=== PATIENT | female | born 1960 | race Caucasian/White ===

== ENCOUNTER 2016-11-21 11:00 | Inpatient (IN) | payer MEDICAID, OTHER ==
[~2016-11-21] VITALS: Ht 157.5 cm; Wt 76.2 kg
[~2016-11-21 11:00] MED LIST: NO HOME MEDICATIONS
[2016-11-21 12:19] LABS: Basophils # (auto) 0 uL; Basophils % (auto) 0.3 % (0.0-2.0); Eosinophils # (auto) 0.1 uL; Eosinophils % (auto) 0.7 % (0.0-7.0); Hematocrit 44.1 % (36.0-46.0); Hemoglobin 14.8 g/dL (12.2-16.2); Lymphocytes # (auto) 1.8 uL; Lymphocytes % (auto) 20.2 % (10.0-50.0); Mean Corpuscular Hemoglobin 27.4 pg (28.0-32.0); Mean Corpuscular Hgb Conc. 33.6 g/dL (32.0-36.0); Mean Corpuscular Volume 81.7 fL (80.0-100.0); Monocytes # (auto) 1.1 uL; Monocytes % (auto) 12.2 % (0.0-12.0); Neutrophils # (auto) 5.8 uL; Neutrophils % (auto) 66.6 % (37.0-80.0); Platelet Count (auto) 345 10^3/uL (140-450); Red Cell Distribution Width 13.3 % (11.6-16.0); White Blood Cell 8.8 10^3/uL (4.4-10.8)
[2016-11-21 12:28] LABS: Albumin 4.1 g/dL (3.4-5.0); Bilirubin, Total 0.3 mg/dL (0.2-1.0); Potassium 3.1 mmol/L (3.5-5.1); Total Protein 8.5 g/dL (6.4-8.2)
[2016-11-21] MEDS ORDERED: SODIUM CHLORIDE 0.9% 1,000 ML IVB ONE (16:35)
[2016-11-21] MEDS ORDERED: ONDANSETRON HCL 4 MG/2 ML VIAL IV ONE (16:45)
[2016-11-21] MEDS ORDERED: MORPHINE SULF INJ 2 MG/ML SYRINGE 1ML IV ONE (16:45)
[2016-11-21 17:11] LABS: Basophils # (auto) 0 uL; Basophils % (auto) 0.2 % (0.0-2.0); Eosinophils # (auto) 0 uL; Eosinophils % (auto) 0.5 % (0.0-7.0); Hematocrit 43.4 % (36.0-46.0); Hemoglobin 14.3 g/dL (12.2-16.2); Lymphocytes # (auto) 1.5 uL; Lymphocytes % (auto) 17.2 % (10.0-50.0); Mean Corpuscular Hemoglobin 27.4 pg (28.0-32.0); Mean Platelet Volume 9.9 fL (7.4-10.4); Monocytes # (auto) 0.9 uL; Monocytes % (auto) 10.4 % (0.0-12.0); Neutrophils # (auto) 6.4 uL; Neutrophils % (auto) 71.7 % (37.0-80.0); Platelet Count (auto) 320 10^3/uL (140-450); Red Cell Distribution Width 13.4 % (11.6-16.0); White Blood Cell 8.9 10^3/uL (4.4-10.8)
[2016-11-21 17:22] LABS: INR 0.97 (0.9-1.15); Partial Thromboplastin Time 25.7 sec (22.64-33.71); Prothrombin Time 10.5 sec (9.37-12.3)
[2016-11-21 17:28] LABS: Albumin 3.8 g/dL (3.4-5.0); BUN/Creatinine Ratio 37.6; Bilirubin, Total 0.3 mg/dL (0.2-1.0); Calcium 7.9 mg/dL (8.5-10.1); Magnesium 2.8 mg/dL (1.6-2.6); Potassium 3.1 mmol/L (3.5-5.1); Total Protein 8.1 g/dL (6.4-8.2)
[2016-11-21 18:05] LABS: Urine Color Yellow (Yellow); Urine Glucose Normal (Normal); Urine Ketone Negative (Negative); Urine Mucus FEW (None Seen); Urine Nitrite Negative (Negative); Urine RBC 3 /hpf (0 - 4); Urine Squamous Epithelial Cell FEW /hpf (<5); Urine WBC Clumps PRESENT /hpf (None Seen)
[2016-11-21] MEDS ORDERED: LEVOFLOXACIN 500MG 100 ML IV SCH (18:15)
[2016-11-21] MEDS ORDERED: LEVOFLOXACIN 500MG 100 ML IV ONE ×2 (18:45→19:30)
[2016-11-21 18:57] LABS: Urine Bilirubin POSITIVE (Negative); Urine Blood 1+ /uL (Negative)
[2016-11-21] MEDS: SODIUM CHLORIDE 0.9% 1,000 ML IV SCH ×2 (19:03→23:50)
[2016-11-21] MEDS ORDERED: POTASSIUM CHL 20 Meq TABLET PO ONE (19:30)
[2016-11-21] MEDS ORDERED: PANTOPRAZOLE SODIUM 40 MG/10 ML VIAL IV ONE (20:00)
[2016-11-21] MEDS: ONDANSETRON HCL 4 MG/2 ML VIAL IV PRN (20:11)
[2016-11-21] MEDS: MORPHINE SULF INJ 2 MG/ML SYRINGE 1ML IV PRN (20:11)
[2016-11-21 21:00] VITALS: BP 114/65
[2016-11-21] MEDS ORDERED: IBU800T PO (21:15)
[2016-11-21] MEDS ORDERED: HYDR25TA4 PO (22:52)
[2016-11-21] MEDS ORDERED: SIMV-13 PO (22:52)
[2016-11-21] MEDS ORDERED: EMPA1TAB PO (22:52)
[2016-11-21] MEDS ORDERED: BACL10TA PO (22:52)
[2016-11-21] MEDS ORDERED: ZOLP5TAB5 PO (22:52)
[2016-11-21] MEDS ORDERED: FENO145T20 PO (22:52)
[2016-11-21] MEDS ORDERED: BENZ100C70 PO (22:52)
[2016-11-21] MEDS ORDERED: ENAL2.5T PO (22:52)
[2016-11-21] MEDS ORDERED: LOR05T PO (22:52)
[2016-11-21 23:54] VITALS: BP 142/77
[2016-11-22 05:18] VITALS: BP 104/51
[2016-11-22 06:08] LABS: Basophils # (auto) 0 uL; Basophils % (auto) 0.3 % (0.0-2.0); Eosinophils # (auto) 0.1 uL; Eosinophils % (auto) 1.6 % (0.0-7.0); Hematocrit 37.5 % (36.0-46.0); Hemoglobin 12.4 g/dL (12.2-16.2); Lymphocytes # (auto) 1.7 uL; Lymphocytes % (auto) 31.1 % (10.0-50.0); Mean Corpuscular Hemoglobin 27.3 pg (28.0-32.0); Mean Corpuscular Volume 82.6 fL (80.0-100.0); Monocytes # (auto) 0.7 uL; Monocytes % (auto) 12.7 % (0.0-12.0); Neutrophils # (auto) 3.1 uL; Neutrophils % (auto) 54.3 % (37.0-80.0); Platelet Count (auto) 282 10^3/uL (140-450); Red Cell Distribution Width 13.1 % (11.6-16.0); White Blood Cell 5.6 10^3/uL (4.4-10.8)
[2016-11-22 06:32] LABS: Albumin 3.4 g/dL (3.4-5.0); BUN/Creatinine Ratio 42.8; Bilirubin, Total 0.3 mg/dL (0.2-1.0); Calcium 7.5 mg/dL (8.5-10.1); Potassium 3.2 mmol/L (3.5-5.1); Total Protein 7.2 g/dL (6.4-8.2)
[2016-11-22] MEDS ORDERED: BACLOFEN 10 MG TAB PO PRN (08:30)
[2016-11-22] MEDS: LEVOFLOXACIN 250MG 50 ML IV SCH (08:47)
[2016-11-22] MEDS: HCTZ 25 MG TAB PO SCH (08:49)
[2016-11-22] MEDS: MORPHINE SULF INJ 2 MG/ML SYRINGE 1ML IV PRN ×2 (08:50→12:58)
[2016-11-22 09:00] VITALS: BP 112/57
[2016-11-22] MEDS: ENALAPRIL MALEATE 2.5 MG TAB PO SCH ×2 (10:00→21:37)
[2016-11-22] MEDS ORDERED: POTASSIUM CHLORIDE 40 MEQ, LIDOCAINE 1% (LOCAL ANESTH.) 4 ML in SODIUM CHL 0.9% 250 ML IV ONE ×2 (10:15→10:45)
[2016-11-22] MEDS: SODIUM CHLORIDE 0.9% 1,000 ML IV SCH ×2 (10:51→21:45)
[2016-11-22 13:00] VITALS: BP 113/69
[2016-11-22] MEDS: LORazepam 0.5 MG TAB PO SCH ×2 (14:46→21:45)
[2016-11-22] MEDS: BENZONATATE 100 MG PO SCH ×2 (16:59→21:45)
[2016-11-22 20:00] VITALS: BP 123/61
[2016-11-22] MEDS: ATORVASTATIN 20 MG TAB PO SCH (21:45)
[2016-11-22] MEDS: ZOLPIDEM TARTRATE 5 MG TAB PO SCH (21:45)
[2016-11-22 22:00] VITALS: BP 123/61
[2016-11-23 05:00] VITALS: BP 119/60
[2016-11-23 05:56] LABS: Basophils # (auto) 0 uL; Basophils % (auto) 0.3 % (0.0-2.0); Eosinophils # (auto) 0.1 uL; Eosinophils % (auto) 1.5 % (0.0-7.0); Hematocrit 36.4 % (36.0-46.0); Hemoglobin 11.9 g/dL (12.2-16.2); Lymphocytes % (auto) 40.6 % (10.0-50.0); Mean Corpuscular Hemoglobin 27.2 pg (28.0-32.0); Mean Corpuscular Hgb Conc. 32.8 g/dL (32.0-36.0); Mean Corpuscular Volume 83.1 fL (80.0-100.0); Monocytes # (auto) 0.7 uL; Monocytes % (auto) 14.2 % (0.0-12.0); Neutrophils # (auto) 2.1 uL; Neutrophils % (auto) 43.4 % (37.0-80.0); Platelet Count (auto) 256 10^3/uL (140-450); Red Cell Distribution Width 13.3 % (11.6-16.0); White Blood Cell 4.9 10^3/uL (4.4-10.8)
[2016-11-23] MEDS: BENZONATATE 100 MG PO SCH ×3 (05:58→21:56)
[2016-11-23] MEDS: LORazepam 0.5 MG TAB PO SCH ×3 (05:58→21:55)
[2016-11-23] MEDS: SODIUM CHLORIDE 0.9% 1,000 ML IV SCH ×3 (05:58→21:58)
[2016-11-23 06:29] LABS: Albumin 3.1 g/dL (3.4-5.0); BUN/Creatinine Ratio 29.6; Bilirubin, Total 0.3 mg/dL (0.2-1.0); Calcium 7.9 mg/dL (8.5-10.1); Potassium 3.8 mmol/L (3.5-5.1); Total Protein 6.6 g/dL (6.4-8.2)
[2016-11-23 09:00] VITALS: BP 147/58
[2016-11-23] MEDS: HCTZ 25 MG TAB PO SCH (10:44)
[2016-11-23] MEDS: LEVOFLOXACIN 250MG 50 ML IV SCH (10:44)
[2016-11-23 13:00] VITALS: BP 134/70
[2016-11-23 17:00] VITALS: BP 150/80
[2016-11-23] MEDS: ONDANSETRON HCL 4 MG/2 ML VIAL IV PRN (17:35)
[2016-11-23] MEDS: ACETAMINOPHEN 325 MG TAB PO PRN ×2 (17:37→23:32)
[2016-11-23 20:00] VITALS: BP 144/80
[2016-11-23] MEDS: ATORVASTATIN 20 MG TAB PO SCH (21:55)
[2016-11-23] MEDS: ZOLPIDEM TARTRATE 5 MG TAB PO SCH (21:55)
[2016-11-23] MEDS: ENALAPRIL MALEATE 10 MG TAB PO SCH (21:56)
[2016-11-24 00:48] VITALS: BP 144/80
[2016-11-24] MEDS: SODIUM CHLORIDE 0.9% 1,000 ML IV SCH (04:45)
[2016-11-24 05:00] VITALS: BP_SYST 126; BP_SYST 149; BP_DIAS 72; BP_DIAS 84
[2016-11-24 05:25] LABS: Basophils # (auto) 0 uL; Basophils % (auto) 0.5 % (0.0-2.0); Eosinophils # (auto) 0.2 uL; Eosinophils % (auto) 2.9 % (0.0-7.0); Hematocrit 36.7 % (36.0-46.0); Hemoglobin 12.2 g/dL (12.2-16.2); Lymphocytes # (auto) 2.2 uL; Lymphocytes % (auto) 40.2 % (10.0-50.0); Mean Corpuscular Hemoglobin 27.4 pg (28.0-32.0); Mean Corpuscular Hgb Conc. 33.3 g/dL (32.0-36.0); Mean Corpuscular Volume 82.3 fL (80.0-100.0); Monocytes # (auto) 0.6 uL; Monocytes % (auto) 11.3 % (0.0-12.0); Neutrophils # (auto) 2.5 uL; Neutrophils % (auto) 45.1 % (37.0-80.0); Platelet Count (auto) 216 10^3/uL (140-450); Red Cell Distribution Width 12.3 % (11.6-16.0); White Blood Cell 5.5 10^3/uL (4.4-10.8)
[2016-11-24 05:48] LABS: BUN/Creatinine Ratio 18.5; Calcium 8.4 mg/dL (8.5-10.1); Potassium 3.5 mmol/L (3.5-5.1)
[2016-11-24] MEDS: LORazepam 0.5 MG TAB PO SCH (06:03)
[2016-11-24] MEDS: BENZONATATE 100 MG PO SCH (06:03)
[2016-11-24 07:55] VITALS: BP 158/76
[2016-11-24 08:00] VITALS: BP 158/76
[2016-11-24] MEDS: ENALAPRIL MALEATE 10 MG TAB PO SCH (09:13)
[2016-11-24] MEDS: HCTZ 25 MG TAB PO SCH (09:13)
[2016-11-24] MEDS: LEVOFLOXACIN 250MG 50 ML IV SCH (09:13)
[2016-11-24 10:23] VITALS: BP 158/76
== END 2016-11-24 11:03 | disposition home or self-care (01) | DRG 463 ==
LOC: EDBD 11:00 → ER 11:00 → OVERFLOW 11:01 → WEST WING 20:29
PROVIDERS: ADMIT Internal Medicine; ATTEND Internal Medicine
DX: N39.0 Urinary tract infection, site not specified (principal); N17.0 Acute kidney failure with tubular necrosis; K76.0 Fatty (change of) liver, not elsewhere classified; E44.0 Moderate protein-calorie malnutrition; E87.1 Hypo-osmolality and hyponatremia; E66.01 Morbid (severe) obesity due to excess calories; E11.9 Type 2 diabetes mellitus without complications; I10 Essential (primary) hypertension; E87.6 Hypokalemia; I70.8 Atherosclerosis of other arteries; Z82.3 Family history of stroke; Z82.49 Family history of ischemic heart disease and other diseases of the circulatory system; Z83.3 Family history of diabetes mellitus; Z90.49 Acquired absence of other specified parts of digestive tract; Z88.0 Allergy status to penicillin; Z68.30 Body mass index [BMI] 30.0-30.9, adult
CPT/HCPCS: 36415; 71010; 74176; 76856; 80048; 80053; 81001; 82150; 83036; 83690; 83735; 85025; 85610; 85730; 93005; 96374; 96375; C9113; J1956; J2001; J2405

== ENCOUNTER 2016-12-13 21:12 | Emergency (ER) | payer MEDICAID ==
[~2016-12-13] VITALS: Ht 157.5 cm; Wt 122.5 kg
[~2016-12-13 21:12] MED LIST changes: +BACL10TA PO; +BENZ100C70 PO; +EMPA1TAB PO; +ENAL2.5T PO; +FENO145T20 PO; +HYDR25TA4 PO; +IBUP800T24 PO; +LOR05T PO; -NO HOME MEDICATIONS; +SIMV-13 PO; +ZOLP5TAB5 PO
[2016-12-13 21:39] VITALS: BP 166/53
[2016-12-13 22:08] LABS: Basophils # (auto) 0 uL; Basophils % (auto) 0.5 % (0.0-2.0); Eosinophils # (auto) 0.3 uL; Eosinophils % (auto) 3.6 % (0.0-7.0); Hematocrit 37.8 % (36.0-46.0); Hemoglobin 12.5 g/dL (12.2-16.2); Lymphocytes # (auto) 2.2 uL; Lymphocytes % (auto) 27.3 % (10.0-50.0); Mean Corpuscular Hemoglobin 27.2 pg (28.0-32.0); Mean Corpuscular Hgb Conc. 33.1 g/dL (32.0-36.0); Mean Corpuscular Volume 82.1 fL (80.0-100.0); Mean Platelet Volume 9.5 fL (7.4-10.4); Monocytes # (auto) 0.6 uL; Monocytes % (auto) 7.1 % (0.0-12.0); Neutrophils # (auto) 4.9 uL; Neutrophils % (auto) 61.5 % (37.0-80.0); Platelet Count (auto) 279 10^3/uL (140-450); Red Cell Distribution Width 12.9 % (11.6-16.0); White Blood Cell 7.9 10^3/uL (4.4-10.8)
[2016-12-13 22:27] LABS: Albumin 3.6 g/dL (3.4-5.0); BUN/Creatinine Ratio 21.4; Bilirubin, Total 0.3 mg/dL (0.2-1.0); Calcium 8.5 mg/dL (8.5-10.1); Potassium 3.8 mmol/L (3.5-5.1); Total Protein 7.4 g/dL (6.4-8.2)
[2016-12-13 22:51] LABS: Urine RBC None Seen /hpf (0 - 4)
[2016-12-13 23:06] LABS: Urine Bilirubin Negative (Negative); Urine Blood Negative /uL (Negative); Urine Color Yellow (Yellow); Urine Ketone Negative (Negative); Urine Nitrite Negative (Negative); Urine Squamous Epithelial Cell FEW /hpf (<5); Urine Urobilinogen Normal (Negative); Urine pH 5.5 (5.0-8.0)
[2016-12-13 23:07] LABS: Urine Glucose 4+ mg/dL (Normal)
== END 2016-12-14 02:51 | disposition left against medical advice (07) ==
LOC: ER 21:12
DX: R73.9 Hyperglycemia, unspecified (principal); Z53.21 Procedure and treatment not carried out due to patient leaving prior to being seen by health care provider
CPT/HCPCS: 36415; 80053; 81001; 82962; 85025

== ENCOUNTER 2017-06-19 16:37 | Emergency (ER) | payer MEDICAID ==
[~2017-06-19 16:37] MED LIST changes: -LOR05T PO; +LORA-654 PO
== END 2017-06-19 17:49 | disposition left against medical advice (07) ==
LOC: ER 16:42
DX: R20.0 Anesthesia of skin (principal); Z53.21 Procedure and treatment not carried out due to patient leaving prior to being seen by health care provider

== ENCOUNTER 2020-01-22 08:55 | Emergency (ER) | payer MEDICAID ==
[~2020-01-22] VITALS: Ht 160 cm; Wt 52.2 kg
[~2020-01-22 08:55] MED LIST changes: -ENAL2.5T PO; +ENAL2.5T7 PO; -FENO145T20 PO; +FENO145T27 PO; -LORA-654 PO; +LORA0.5T20 PO
[2020-01-22 09:34] LABS: Basophils # (auto) 0 10 ^3/uL (0-0.2); Basophils % (auto) 0.4 % (0.0-2.0); Eosinophils # (auto) 0.1 10 ^3/uL (0-0.8); Eosinophils % (auto) 1.3 % (0.0-7.0); Hematocrit 33.9 % (36.0-46.0); Hemoglobin 11.2 g/dL (12.2-16.2); Lymphocytes # (auto) 1.6 10 ^3/uL (0.4-5.4); Lymphocytes % (auto) 22.8 % (10.0-50.0); Mean Corpuscular Hemoglobin 28.8 pg (28.0-32.0); Mean Corpuscular Hgb Conc. 33.2 g/dL (32.0-36.0); Mean Corpuscular Volume 86.8 fL (80.0-100.0); Monocytes # (auto) 0.6 10 ^3/uL (0-1.3); Monocytes % (auto) 8.3 % (0.0-12.0); Neutrophils # (auto) 4.7 10 ^3/uL (1.6-8.6); Neutrophils % (auto) 67.2 % (37.0-80.0); Nucleated Red Blood Cells % 0.1 %; Platelet Count (auto) 231 10^3/uL (140-450); Red Cell Distribution Width 13.5 % (11.8-14.3)
[2020-01-22] MEDS ORDERED: SODIUM CHLORIDE 0.9% 1,000 ML IV ONE ×2 (09:34)
[2020-01-22 09:51] LABS: Albumin 3.5 g/dL (3.4-5.0); Anion Gap 3 (5-15); Blood Urea Nitrogen 20 mg/dL (7-18); Calcium 8.4 mg/dL (8.5-10.1); Carbon Dioxide 26 mmol/L (21-32); Chloride 113 mmol/L (98-107); Glucose 81 mg/dL (74-106); Potassium 3.1 mmol/L (3.5-5.1); Sodium 142 mmol/L (136-145)
[2020-01-22 09:56] LABS: Alanine Aminotransferase 27 U/L (13-56); Alkaline Phosphatase 33 U/L (45-117); Aspartate Aminotransferase 22 U/L (15-37); BUN/Creatinine Ratio 28.2; Bilirubin, Total 0.3 mg/dL (0.2-1.0); GFR African American 109 mL/min; GFR Non-African American 90 mL/min; Total Protein 6.3 g/dL (6.4-8.2)
[2020-01-22] MEDS ORDERED: POTASSIUM EFFERVESENT TAB 25 MEQ PO ONE (11:30)
[2020-01-22 12:32] VITALS: BP 110/63
== END 2020-01-22 12:40 | disposition home or self-care (01) ==
LOC: EDBD 08:55 → ER 08:55
DX: R42 Dizziness and giddiness (principal); E87.6 Hypokalemia; Z90.49 Acquired absence of other specified parts of digestive tract; Z90.89 Acquired absence of other organs
CPT/HCPCS: 36415; 36600; 70450; 71045; 74176; 80053; 82010; 82805; 84484; 85025; 93005; 96360; 96361; 99285; J7030

== ENCOUNTER → 2020-03-01 | Emergency (ER) | payer MEDICAID ==
[~2020-03-01] VITALS: Ht 157.5 cm; Wt 54.0 kg
[~2020-03-01] MED LIST changes: +ACETAMINOPHEN 500 MG TAB PO ONE; +ONDANSETRON HCL 4 MG/2 ML VIAL IV ONE; +SODIUM CHLORIDE 0.9% 500 ML IVB ONE
[2020-03-01 16:17] VITALS: BP 106/55
[2020-03-01 16:54] LABS: Basophils # (auto) 0 10 ^3/uL (0-0.2); Basophils % (auto) 0.2 % (0.0-2.0); Eosinophils # (auto) 0 10 ^3/uL (0-0.8); Eosinophils % (auto) 0.3 % (0.0-7.0); Hematocrit 32.2 % (36.0-46.0); Hemoglobin 10.5 g/dL (12.2-16.2); Lymphocytes # (auto) 1.1 10 ^3/uL (0.4-5.4); Lymphocytes % (auto) 7.9 % (10.0-50.0); Mean Corpuscular Hemoglobin 28.4 pg (28.0-32.0); Mean Corpuscular Hgb Conc. 32.6 g/dL (32.0-36.0); Mean Corpuscular Volume 87.1 fL (80.0-100.0); Monocytes # (auto) 0.8 10 ^3/uL (0-1.3); Monocytes % (auto) 5.4 % (0.0-12.0); Neutrophils # (auto) 11.9 10 ^3/uL (1.6-8.6); Neutrophils % (auto) 86.2 % (37.0-80.0); Platelet Count (auto) 328 10^3/uL (140-450); Red Blood Cells 3.69 10^6/uL (4.0-5.20); White Blood Cell 13.8 10^3/uL (4.4-10.8)
[2020-03-01 17:24] LABS: Albumin 2.9 g/dL (3.4-5.0); BUN/Creatinine Ratio 27.7; Calcium 8.6 mg/dL (8.5-10.1); Potassium 3.1 mmol/L (3.5-5.1)
[2020-03-01 17:27] LABS: Bilirubin, Total 0.8 mg/dL (0.2-1.0); Total Protein 6.8 g/dL (6.4-8.2)
[2020-03-01 21:26] LABS: Urine Bacteria MOD /hpf (None Seen); Urine Blood Negative /uL (Negative); Urine Hyaline Cast MOD /lpf (0 - 2); Urine Mucus FEW (None Seen); Urine Specific Gravity 1.019 (1.001-1.035); Urine WBC 99 /hpf (0 - 5)
== END | disposition home or self-care (01) ==
LOC: ER 15:35
DX: R19.00 Intra-abdominal and pelvic swelling, mass and lump, unspecified site (principal); R10.84 Generalized abdominal pain; I95.9 Hypotension, unspecified; Z90.49 Acquired absence of other specified parts of digestive tract; Z90.89 Acquired absence of other organs; Z98.890 Other specified postprocedural states; Z98.51 Tubal ligation status; Z98.84 Bariatric surgery status; Z79.899 Other long term (current) drug therapy; Z88.0 Allergy status to penicillin
CPT/HCPCS: 36415; 74176; 76856; 80053; 81001; 83690; 85025; 96360

== ENCOUNTER 2021-03-24 11:47 | Emergency (ER) | payer MEDICAID ==
[~2021-03-24] VITALS: Ht 157.5 cm; Wt 57.6 kg
[~2021-03-24 11:47] MED LIST changes: -ACETAMINOPHEN 500 MG TAB PO ONE; +BENZ100C19 PO; -BENZ100C70 PO; -IBUP800T24 PO; +IBUP800T26 PO; -ONDANSETRON HCL 4 MG/2 ML VIAL IV ONE; -SODIUM CHLORIDE 0.9% 500 ML IVB ONE
[2021-03-24 12:16] LABS: Basophils # (auto) 0 10 ^3/uL (0-0.2); Basophils % (auto) 0.4 % (0.0-2.0); Eosinophils # (auto) 0 10 ^3/uL (0-0.8); Eosinophils % (auto) 0.4 % (0.0-7.0); Hematocrit 35.6 % (36.0-46.0); Hemoglobin 11.9 g/dL (12.2-16.2); Lymphocytes # (auto) 1.1 10 ^3/uL (0.4-5.4); Lymphocytes % (auto) 10.5 % (10.0-50.0); Mean Corpuscular Hemoglobin 28.7 pg (28.0-32.0); Mean Corpuscular Hgb Conc. 33.3 g/dL (32.0-36.0); Mean Corpuscular Volume 86.3 fL (80.0-100.0); Monocytes # (auto) 0.7 10 ^3/uL (0-1.3); Monocytes % (auto) 7.1 % (0.0-12.0); Neutrophils # (auto) 8.5 10 ^3/uL (1.6-8.6); Neutrophils % (auto) 81.6 % (37.0-80.0); Red Blood Cells 4.13 10^6/uL (4.0-5.20); Red Cell Distribution Width 13.5 % (11.8-14.3); White Blood Cell 10.4 10^3/uL (4.4-10.8)
[2021-03-24 12:31] LABS: Albumin 3.4 g/dL (3.4-5.0); Anion Gap 11 (5-15); Blood Urea Nitrogen 20 mg/dL (7-18); Calcium 8.4 mg/dL (8.5-10.1); Carbon Dioxide 25 mmol/L (21-32); Chloride 102 mmol/L (98-107); Glucose 63 mg/dL (74-106); Potassium 3.5 mmol/L (3.5-5.1); Sodium 138 mmol/L (136-145)
[2021-03-24 12:36] LABS: Alanine Aminotransferase 19 U/L (13-56); Alkaline Phosphatase 56 U/L (45-117); Aspartate Aminotransferase 14 U/L (15-37); BUN/Creatinine Ratio 33.3; GFR African American 132 mL/min; GFR Non-African American 109 mL/min
[2021-03-24 12:46] LABS: Urine Bacteria FEW /hpf (None Seen); Urine Blood Negative /uL (Negative); Urine Hyaline Cast MANY /lpf (0 - 2); Urine Mucus FEW (None Seen); Urine Specific Gravity 1.024 (1.001-1.035); Urine WBC 61 /hpf (0 - 5)
[2021-03-24 14:00] VITALS: BP 119/77
== END 2021-03-24 14:33 | disposition home or self-care (01) ==
LOC: ER 11:47
DX: J18.9 Pneumonia, unspecified organism (principal); N39.0 Urinary tract infection, site not specified; Z88.0 Allergy status to penicillin; Z88.8 Allergy status to other drugs, medicaments and biological substances; Z79.899 Other long term (current) drug therapy; Z90.89 Acquired absence of other organs; Z90.49 Acquired absence of other specified parts of digestive tract; Z98.890 Other specified postprocedural states
CPT/HCPCS: 36415; 74176; 80053; 81001; 84484; 85025

== ENCOUNTER → 2021-04-20 | Emergency (ER) | payer OTHER, MEDICAID ==
[~2021-04-20] VITALS: Ht 157.5 cm; Wt 56.2 kg
[~2021-04-20] MED LIST changes: +HYDROcodone-ACET 5/325MG TAB PO ONE
[2021-04-20 23:42] VITALS: BP 170/79
== END | disposition home or self-care (01) ==
LOC: ER 22:40
DX: S30.0XXA Contusion of lower back and pelvis, initial encounter (principal); Z98.51 Tubal ligation status; Z90.49 Acquired absence of other specified parts of digestive tract; Z88.0 Allergy status to penicillin; W01.0XXA Fall on same level from slipping, tripping and stumbling without subsequent striking against object, initial encounter; Y93.89 Activity, other specified; Y92.89 Other specified places as the place of occurrence of the external cause; Y99.8 Other external cause status
CPT/HCPCS: 72170; 73502

== ENCOUNTER 2022-03-21 11:39 | Emergency (ER) | payer MEDICAID, OTHER ==
[~2022-03-21 11:39] MED LIST changes: -HYDROcodone-ACET 5/325MG TAB PO ONE
== END 2022-03-21 16:41 | disposition left against medical advice (07) ==
LOC: ER 11:39
DX: R10.9 Unspecified abdominal pain (principal); Z53.21 Procedure and treatment not carried out due to patient leaving prior to being seen by health care provider

== ENCOUNTER 2022-09-29 11:59 | Emergency (ER) | payer MEDICAID ==
[~2022-09-29] VITALS: Ht 157.5 cm; Wt 53.5 kg
[2022-09-29 12:43] LABS: Urine Bacteria FEW /hpf (None Seen); Urine Blood Negative /uL (Negative); Urine Hyaline Cast FEW /lpf (0 - 2); Urine Mucus FEW (None Seen); Urine Specific Gravity 1.023 (1.001-1.035); Urine WBC 34 /hpf (0 - 5)
[2022-09-29 13:28] LABS: Calcium 8.8 mg/dL (8.5-10.1); Magnesium 1.5 mg/dL (1.6-2.6); Potassium 3.5 mmol/L (3.5-5.1)
[2022-09-29 13:36] LABS: Albumin 3.9 g/dL (3.4-5.0); BUN/Creatinine Ratio 32.8; Bilirubin, Total 0.5 mg/dL (0.2-1.0); Total Protein 6.5 g/dL (6.4-8.2)
[2022-09-29 13:42] LABS: Basophils # (auto) 0 10 ^3/uL (0-0.2); Basophils % (auto) 0.2 % (0.0-2.0); Eosinophils # (auto) 0 10 ^3/uL (0-0.8); Eosinophils % (auto) 0.4 % (0.0-7.0); Hematocrit 36.2 % (36.0-46.0); Hemoglobin 11.4 g/dL (12.2-16.2); Mean Corpuscular Hemoglobin 26.5 pg (28.0-32.0); Mean Corpuscular Hgb Conc. 31.4 g/dL (32.0-36.0); Mean Corpuscular Volume 84.3 fL (80.0-100.0); Monocytes # (auto) 0.4 10 ^3/uL (0-1.3); Monocytes % (auto) 5.5 % (0.0-12.0); Neutrophils # (auto) 4.9 10 ^3/uL (1.6-8.6); Neutrophils % (auto) 77.9 % (37.0-80.0); Nucleated Red Blood Cells % 0.1 %; Red Blood Cells 4.29 10^6/uL (4.0-5.20); Red Cell Distribution Width 13.4 % (11.8-14.3); White Blood Cell 6.3 10^3/uL (4.4-10.8)
[2022-09-29] MEDS ORDERED: IOHEXOL 300 MG/ML 100ML BOTTLE IJ ONE (13:53)
[2022-09-29] MEDS ORDERED: ONDA-144 PO ×3 (15:09→15:31)
[2022-09-29] MEDS ORDERED: NITR-87 PO ×3 (15:09→15:31)
[2022-09-29 15:27] VITALS: BP 153/57
== END 2022-09-29 15:34 | disposition home or self-care (01) ==
LOC: ER 11:59
DX: N39.0 Urinary tract infection, site not specified (principal); F41.9 Anxiety disorder, unspecified; E11.9 Type 2 diabetes mellitus without complications; E78.5 Hyperlipidemia, unspecified; I10 Essential (primary) hypertension; Z20.822 Contact with and (suspected) exposure to COVID-19; Z98.84 Bariatric surgery status; Z90.89 Acquired absence of other organs; Z90.49 Acquired absence of other specified parts of digestive tract; Z98.51 Tubal ligation status; Z98.890 Other specified postprocedural states; Z88.8 Allergy status to other drugs, medicaments and biological substances
CPT/HCPCS: 36415; 71260; 74177; 80053; 81001; 82150; 83690; 83735; 84484; 85025; 87426; 87804; 93005; 99285; Q9967

== ENCOUNTER 2023-06-10 20:55 | Emergency (ER) | payer MEDICAID ==
[~2023-06-10] VITALS: Ht 157.5 cm; Wt 65.7 kg
[~2023-06-10 20:55] MED LIST changes: +ENAL1TAB42 PO; -ENAL2.5T7 PO; +IBUP-1455 PO; -IBUP800T26 PO; +LORA-1121 PO; -LORA0.5T20 PO; +NITR-87 PO; +ONDA-144 PO; -SIMV-13 PO; +SIMV40TA18 PO
[2023-06-10] MEDS ORDERED: MORPHINE SULFATE 4 MG/ML SYR/VIAL IM ONE (21:30)
[2023-06-10] MEDS ORDERED: HYDR-4902 PO (22:13)
[2023-06-10 22:50] VITALS: PULSE 102; RESP 18; TEMP 98.7; O2SAT 96
[2023-06-10 22:54] VITALS: BP 156/60; PULSE 64; RESP 18
== END 2023-06-10 23:00 | disposition home or self-care (01) ==
LOC: ER 20:55
DX: S52.592A Other fractures of lower end of left radius, initial encounter for closed fracture (principal); I10 Essential (primary) hypertension; E11.9 Type 2 diabetes mellitus without complications; E78.5 Hyperlipidemia, unspecified; F41.9 Anxiety disorder, unspecified; Z86.73 Personal history of transient ischemic attack (TIA), and cerebral infarction without residual deficits; Z98.890 Other specified postprocedural states; Z88.8 Allergy status to other drugs, medicaments and biological substances; Z79.899 Other long term (current) drug therapy; W18.39XA Other fall on same level, initial encounter; Y93.89 Activity, other specified; Y92.098 Other place in other non-institutional residence as the place of occurrence of the external cause; Y99.8 Other external cause status
CPT/HCPCS: 29125; 73090; 73110; 96372; 99284; J2270

== ENCOUNTER 2023-10-19 07:55 | Emergency (ER) | payer MEDICAID ==
[~2023-10-19] VITALS: Ht 157.5 cm; Wt 67.3 kg
[~2023-10-19 07:55] MED LIST changes: +HYDR-4902 PO
[2023-10-19 09:10] LABS: Basophils # (auto) 0 10 ^3/uL (0-0.2); Basophils % (auto) 0.3 % (0.0-2.0); Eosinophils # (auto) 0.2 10 ^3/uL (0-0.8); Hematocrit 42.8 % (36.0-46.0); Hemoglobin 13.7 g/dL (12.2-16.2); Lymphocytes # (auto) 1.4 10 ^3/uL (0.4-5.4); Lymphocytes % (auto) 15.8 % (10.0-50.0); Mean Corpuscular Hemoglobin 27.7 pg (28.0-32.0); Mean Corpuscular Hgb Conc. 32.1 g/dL (32.0-36.0); Mean Corpuscular Volume 86.2 fL (80.0-100.0); Monocytes # (auto) 0.8 10 ^3/uL (0-1.3); Monocytes % (auto) 8.5 % (0.0-12.0); Neutrophils # (auto) 6.7 10 ^3/uL (1.6-8.6); Neutrophils % (auto) 73.4 % (37.0-80.0); Red Blood Cells 4.96 10^6/uL (4.0-5.20); Red Cell Distribution Width 13.1 % (11.8-14.3); White Blood Cell 9.1 10^3/uL (4.4-10.8)
[2023-10-19 09:22] LABS: INR 1.07 (0.9-1.15); Partial Thromboplastin Time 29.4 SEC (24.5-34.5); Prothrombin Time 11.2 sec (9.3-11.8)
[2023-10-19 09:27] LABS: Alanine Aminotransferase 38 U/L (7-40); Albumin 4.6 g/dL (3.2-4.8); Alkaline Phosphatase 122 U/L (46-116); Anion Gap 8 (5-15); Aspartate Aminotransferase 44 U/L (13-40); BUN/Creatinine Ratio 23.1 (10.0-20.0); Bilirubin, Total 0.8 mg/dL (0.2-1.0); Blood Urea Nitrogen 15 mg/dL (9-23); Calcium 9.4 mg/dL (8.5-10.1); Carbon Dioxide 28 mmol/L (20-30); Chloride 104 mmol/L (98-107); Glucose 73 mg/dL (74-106); Potassium 3.5 mmol/L (3.5-5.1); Sodium 140 mmol/L (136-145); Total Protein 7.5 g/dL (5.7-8.2)
[2023-10-19 10:37] LABS: Urine Bacteria None Seen /hpf (None Seen)
[2023-10-19] MEDS: SODIUM CHLORIDE 0.9% 1,000 ML IV ONE (10:44)
[2023-10-19 10:51] VITALS: TEMP 98.6
[2023-10-19 10:53] LABS: Lipase 47 U/L (12-53)
[2023-10-19 10:54] LABS: Magnesium 1.8 mg/dL (1.6-2.6)
[2023-10-19 10:59] LABS: Urine Blood Negative /uL (Negative); Urine Clarity Clear (Clear); Urine Color Yellow (Yellow); Urine Hyaline Cast MANY /lpf (0 - 2); Urine Mucus FEW (None Seen); Urine Protein, UAD TRACE (Negative); Urine Specific Gravity 1.032 (1.001-1.035); Urine Urobilinogen 4 mg/dL (Negative); Urine WBC 10 /hpf (0 - 5); Urine pH 5.5 (5.0-9.0)
[2023-10-19] MEDS: cefTRIAXone 1GM/50ML D5W 50 ML IV ONE (11:22)
[2023-10-19] MEDS ORDERED: NITR-87 PO (13:25)
[2023-10-19] MEDS ORDERED: TRAM50TA2 PO (13:25)
[2023-10-19] MEDS ORDERED: DICL50TA2 PO (13:25)
[2023-10-19 13:54] VITALS: BP 129/74; PULSE 86; RESP 18; O2SAT 96
== END 2023-10-19 13:59 | disposition home or self-care (01) ==
LOC: ER 07:55
DX: N83.292 Other ovarian cyst, left side (principal); D25.9 Leiomyoma of uterus, unspecified; N39.0 Urinary tract infection, site not specified; R10.13 Epigastric pain; R11.2 Nausea with vomiting, unspecified; I10 Essential (primary) hypertension; E11.9 Type 2 diabetes mellitus without complications; E78.5 Hyperlipidemia, unspecified; F41.9 Anxiety disorder, unspecified; Z98.84 Bariatric surgery status; Z86.73 Personal history of transient ischemic attack (TIA), and cerebral infarction without residual deficits; Z98.890 Other specified postprocedural states; Z88.0 Allergy status to penicillin; Z88.8 Allergy status to other drugs, medicaments and biological substances; Z79.899 Other long term (current) drug therapy
CPT/HCPCS: 36415; 71046; 74177; 76830; 76856; 80053; 81001; 83690; 83735; 85025; 85610; 85730; 93005; 96361; 96365; 99285; J7030; Q9967

== ENCOUNTER 2024-03-05 14:12 | Emergency (ER) | payer MEDICAID ==
[~2024-03-05] VITALS: Ht 154.9 cm; Wt 64.2 kg
[~2024-03-05 14:12] MED LIST changes: +DICL50TA2 PO; +TRAM50TA2 PO
[2024-03-05] MEDS: SODIUM CHLORIDE 0.9% 1,000 ML IV ONE (16:15)
[2024-03-05 16:45] LABS: Basophils # (auto) 0 10 ^3/uL (0-0.2); Basophils % (auto) 0.2 % (0.0-2.0); Eosinophils # (auto) 0.1 10 ^3/uL (0-0.8); Eosinophils % (auto) 2.3 % (0.0-7.0); Hematocrit 41.1 % (36.0-46.0); Hemoglobin 13.4 g/dL (12.2-16.2); Lymphocytes # (auto) 1.3 10 ^3/uL (0.4-5.4); Lymphocytes % (auto) 24.3 % (10.0-50.0); Mean Corpuscular Hemoglobin 28.4 pg (28.0-32.0); Mean Corpuscular Hgb Conc. 32.5 g/dL (32.0-36.0); Mean Corpuscular Volume 87.2 fL (80.0-100.0); Monocytes # (auto) 0.5 10 ^3/uL (0-1.3); Monocytes % (auto) 9.9 % (0.0-12.0); Neutrophils # (auto) 3.3 10 ^3/uL (1.6-8.6); Neutrophils % (auto) 63.3 % (37.0-80.0); Platelet Count (auto) 199 10^3/uL (140-450); Red Blood Cells 4.71 10^6/uL (4.0-5.20); Red Cell Distribution Width 13.3 % (11.8-14.3); White Blood Cell 5.2 10^3/uL (4.4-10.8)
[2024-03-05 17:04] LABS: Alanine Aminotransferase 29 U/L (7-40); Albumin 4.3 g/dL (3.2-4.8); Alkaline Phosphatase 91 U/L (46-116); Anion Gap 5 (5-15); Aspartate Aminotransferase 43 U/L (13-40); Bilirubin, Total 0.4 mg/dL (0.2-1.0); Blood Urea Nitrogen 24 mg/dL (9-23); Calcium 9.7 mg/dL (8.7-10.4); Carbon Dioxide 28 mmol/L (20-30); Chloride 106 mmol/L (98-107); Glucose 97 mg/dL (74-106); Lipase 69 U/L (12-53); Potassium 4.2 mmol/L (3.5-5.1); Sodium 139 mmol/L (136-145); Total Protein 7.3 g/dL (5.7-8.2)
[2024-03-05 17:06] VITALS: BP 105/59; PULSE 52; RESP 16; O2SAT 96
[2024-03-05] MEDS: ONDANSETRON HCL 4 MG/2 ML VIAL IV ONE (17:20)
[2024-03-05] MEDS: SUCRALFATE 1 GM TAB PO ONE (18:15)
[2024-03-05] MEDS: PANTOPRAZOLE 40 MG/10 ML VIAL INJ IV ONE (18:15)
[2024-03-05] MEDS: HYDROcodone-ACET 5/325MG TAB PO ONE (19:23)
[2024-03-05 21:02] LABS: Urine Bacteria None Seen /hpf (None Seen)
[2024-03-05 21:21] LABS: Urine Blood Negative /uL (Negative); Urine Clarity Turbid (Clear); Urine Color Yellow (Yellow); Urine Mucus FEW (None Seen); Urine Protein, UAD TRACE (Negative); Urine Specific Gravity 1.028 (1.001-1.035); Urine Urobilinogen 2 mg/dL (Negative); Urine WBC 46 /hpf (0 - 5)
== END 2024-03-05 20:57 | disposition left against medical advice (07) ==
LOC: ER 14:12
DX: R10.84 Generalized abdominal pain (principal); R11.2 Nausea with vomiting, unspecified; I10 Essential (primary) hypertension; E11.9 Type 2 diabetes mellitus without complications; E78.5 Hyperlipidemia, unspecified; F41.9 Anxiety disorder, unspecified; Z53.29 Procedure and treatment not carried out because of patient's decision for other reasons; Z86.73 Personal history of transient ischemic attack (TIA), and cerebral infarction without residual deficits; Z98.890 Other specified postprocedural states; Z88.8 Allergy status to other drugs, medicaments and biological substances; Z79.899 Other long term (current) drug therapy
CPT/HCPCS: 36415; 74176; 80053; 81001; 83605; 83690; 84484; 85025; 93005; 96361; 96374; 99285; J2405; J2470; J7030